=== PATIENT | male | born 1970 | race Caucasian/White ===

== ENCOUNTER 2020-01-07 12:13 | Emergency (ER) | payer BC ==
[2020-01-07] MEDS ORDERED: Lidocaine 1% PF 5 ML VIAL ONE (12:31)
[2020-01-07] MEDS ORDERED: Benzocaine 20% Spray 60 ML CAN ONE (12:33)
== END 2020-01-07 13:05 | disposition home or self-care (01) ==
LOC: BURERS 12:13
DX: S60.352A Superficial foreign body of left thumb, initial encounter (principal); F17.210 Nicotine dependence, cigarettes, uncomplicated; W45.8XXA Other foreign body or object entering through skin, initial encounter
CPT/HCPCS: 64450